=== PATIENT | female | born 1995 | race Caucasian/White ===

== ENCOUNTER 2022-03-14 09:13 | Emergency (ER) | payer MEDICAID, SELFPAY ==
[2022-03-14 09:21] VITALS: BP 126/85; PULSE 105; RESP 16; TEMP 37.2; O2SAT 99; BMI 22.6
--- NOTE | 2022-03-14 11:09 | ED.NURSE ---
[facility] right [facility]. Dr. Bonilla in room repairing wound also.
--- NOTE | 2022-03-14 11:12 | ED_ITS ---
HPI - Animal Bite General Chief Complaint: Animal Bite Stated Complaint: Dog Bite on Right Hand Time Seen by Provider: 03/14/22 10:37 History of Present Illness HPI narrative: This 27-year-old female comes in with a laceration in the palm of her right hand just between the webspace of the index and middle finger. She states that she got bit by her dog a couple days ago and sustained this injury. The dog was fighting with another dog and she attempted to break up the fight and this injury occurred. She states that she did not seek medical attention until now. She does not have any sign of infection but this laceration which is approximately 1.5 cm long was healing properly and it today she stretched her finger in such a way that the wound opened up. Her dog is fully vaccinated. Related Data Home Medications Medication Instructions Recorded Confirmed aripiprazole 20 mg tablet (Abilify) 25 mg PO DAILY 03/14/22 03/14/22 Allergies Allergy/AdvReac Type Severity Reaction Status Date / Time No Known Drug Allergies Allergy Verified 03/14/22 09:26 Review of Systems Status of ROS: Reports: 10 or more systems reviewed and unremarkable except as noted in History and below Narrative: Constitutional: No fevers, no weight gain or loss. Eyes: No discharge. No vision changes. HENT: No congestion, no sore throat, no ear pain. Cardiovascular: No chest pain, no palpitations. Respiratory: No shortness of breath, no wheezes, no cough. Gastrointestinal: No abdominal pain, no vomiting, no diarrhea. Genitourinary: No dysuria, no hematuria. Musculoskeletal: Normal range of motion. Skin: No rashes, no pruritis. Right hand injury as described above. Neurological: No dizziness, weakness, sensory change, speech change. Endo/Heme/Allergies: No bruising or bleeding. No polydipsia. Pysch: no suicidality, no anxiety, no insomnia. All other systems reviewed and are negative. Exam Narrative: Exam Narrative: Constitutional: Well-developed, well-nourished, no acute distress. HEENT: Normocephalic, atraumatic. Neck: Normal range of motion. Nontender. Supple. Heart: Intact distal pulses. Lungs: No chest discomfort. No wheezes, rhonchi, or rales. Abdomen: Nontender. Back: Normal range of motion. Extremities: Normal range of motion. 1.5 cm linear laceration in the webspace between the middle and index finger of the right hand. Skin: Intact. No rash. Warm. No erythema or pallor. Neurologic: No altered sensation. No weakness. Alert and oriented. Psychiatric: No suicidality. No anxiety or depression. No insomnia. Nursing notes and vitals signs are reviewed. Const: Vital Signs, click to edit/add: Vital Signs - 24 hr 03/14/22 09:21 Temperature 98.9 F Pulse Rate [Right Pulse Oximeter] 105 H Respiratory Rate 16 Blood Pressure [Ri ght Upper Arm] 126/85 Pulse Oximetry 99 Oxygen Delivery Me thod Room Air Course Vital Signs Vital signs: Initial Vital Signs Temperature 98.9 F 03/14/22 09:21 Temperature Source Temporal Artery Scan 03/14/22 09:21 Pulse Rate 105 H 03/14/22 09:21 Pulse Rhythm 03/14/22 09:21 Respiratory Rate 16 03/14/22 09:21 Blood Pressure 126/85 03/14/22 09:21 Blood Pressure Mean 98 03/14/22 09:21 Blood Pressure Position Sitting 03/14/22 09:21 Pulse Oximetry 99 03/14/22 09:21 Oxygen Delivery Method 03/14/22 09:21 Vital Signs Temperature 98.9 F 03/14/22 09:21 Pulse Rate 105 H 03/14/22 09:21 Respiratory Rate 16 03/14/22 09:21 Blood Pressure 126/85 03/14/22 09:21 Pulse Oximetry 99 03/14/22 09:21 Oxygen Delivery Method 03/14/22 09:21 Temperature 98.9 F 03/14/22 09:21 Pulse Rate 105 H 03/14/22 09:21 Respiratory Rate 16 03/14/22 09:21 Blood Pressure 126/85 03/14/22 09:21 Pulse Oximetry 99 03/14/22 09:21 Oxygen Delivery Method 03/14/22 09:21 MDM - Animal Bite MDM Narrative Medical decision making narrative: This patient comes in requesting repair of the wound that occurred 2 days ago. I stated that there is some increased risk for infection when repairing a wound beyond 12 hours after its occurrence. This wound was healing properly and is showing no sign of infection. I did agree to place a few sutures as this is a wound that will continue to reopen as she uses her right hand. After anesthesia with 1% lidocaine I thoroughly cleansed the wound with normal saline. Three sutures were placed in interrupted fashion using 4.0 Ethilon suture. The wound edges are nicely approximated. A Band-Aid was applied. Instructions were given regarding wound care and the need for suture removal in 7-10 days. I also describe signs and symptoms indicating need for return and re-evaluation, in particular if infection happens. Discharge Plan Discharge Clinical Impression: Dog bite Patient Disposition: Home, Self-Care Condition: Improved Additional Instructions: Keep wound clean and dry. Return to clinic or urgent care for suture removal in 7-10 days. Return to emergency department if worsening symptoms happen. Prescriptions: No Action aripiprazole [Abilify] 20 mg tablet 25 mg PO DAILY Follow Up/Referrals: Provider,Not a Local [Primary Care Provider] - Stand Alone Forms: [employer] Info Instructions
--- NOTE | 2022-03-14 11:27 | ED.NURSE ---
Given discharge instructions and verbalizes understanding of discharge instructions. No further questions asked.
== END 2022-03-14 11:29 | disposition home or self-care (01) ==
PROVIDERS: Emergency Provider Emergency Medicine Emergency Medical Services
DX: S61.411A Laceration without foreign body of right hand, initial encounter (principal); W54.0XXA Bitten by dog, initial encounter
CPT/HCPCS: 12001; 99283; 99284

== ENCOUNTER 2023-02-08 13:37 | Outpatient (CLI) | payer MEDICAID, SELFPAY | END 2023-02-08 13:38 | disposition home or self-care (01) | LOC: AMB 02-09 20:47 | PROVIDERS: Visit Provider Family Medicine | DX: S09.90XA Unspecified injury of head, initial encounter (principal); S89.91XA Unspecified injury of right lower leg, initial encounter; S89.92XA Unspecified injury of left lower leg, initial encounter; V43.62XA Car passenger injured in collision with other type car in traffic accident, initial encounter; Y92.410 Unspecified street and highway as the place of occurrence of the external cause | CPT/HCPCS: A0425; A0427 ==

== ENCOUNTER 2023-02-12 18:50 | Emergency (ER) | payer MEDICAID, SELFPAY ==
[2023-02-12 19:12] VITALS: BP 161/81; PULSE 104; RESP 18; TEMP 36.3; O2SAT 100; BMI 23.1
[2023-02-12 19:56] VITALS: BP 161/81; PULSE 104; RESP 18; TEMP 36.7; O2SAT 100
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
[2023-02-12 20:08] VITALS: BP 161/81; PULSE 104; RESP 18; TEMP 36.7
== END 2023-02-12 20:09 | disposition home or self-care (01) ==
LOC: ED 20:06
PROVIDERS: Emergency Provider Student in an Organized Health Care Education/Training Program
DX: S82.92XA Unspecified fracture of left lower leg, initial encounter for closed fracture (principal); S82.91XA Unspecified fracture of right lower leg, initial encounter for closed fracture
CPT/HCPCS: 99282; 99283

== ENCOUNTER 2023-05-04 17:15 | Emergency (ER) | payer MEDICAID, SELFPAY ==
[2023-05-04 17:17] VITALS: BP 126/87; PULSE 104; RESP 18; TEMP 36.4; O2SAT 100; BMI 21.6
--- NOTE | 2023-05-04 17:31 | US_ITS ---
Patient: ANIL MENA Facility:?[facility] Patient ID:?[id number] Site Patient ID:?[id number]. Site :?[id number] Study:?US-Extremity RT Venous-05/04/2023 6:22:21 PM Ordering Physician:Flex Final Report: INDICATION: Right ankle swelling COMPARISON: None. TECHNIQUE: Grayscale, color Doppler, and duplex Doppler of the right lower extremity deep and superficial venous systems. FINDINGS: Laterality: Right Examined veins: common femoral, femoral, deep femoral, popliteal, peroneal, posterior tibial greater saphenous The examined veins are patent with normal grayscale appearance and normal compressibility where anatomically feasible. Normal color Doppler flow. Normal venous waveforms on duplex Doppler ultrasound with normal augmentation. Specific area of concern in the right ankle shows subcutaneous edema without superficial thrombosis. IMPRESSION: Right ankle soft tissue swelling. No right lower extremity deep or superficial venous thrombus. Dictated by Cherry Magana MD @ 05/04/2023 7:27:24 PM Signed by:?Cherry Magana MD @05/04/2023 7:27:24 PM (Electronic Signature)
--- NOTE | 2023-05-04 18:18 | ED.GENADULT ---
HPI - General Adult General Chief complaint: Lower Extremity Swelling Stated complaint: R ankle injury, fell 10 ft Time Seen by Provider: 05/04/23 17:32 History of Present Illness HPI narrative: This 28-year-old female comes in with pain and redness in her right foot and extending up into the lower part of her right leg. She states that she injected methamphetamines into her foot a few days ago and now has this reaction. She states that she has been through treatment a couple times because of methamphetamine abuse and she understands that she needs help again. Related Data Home Medications Medication Instructions Recorded Confirmed aripiprazole 20 mg tablet (Abilify) 15 mg PO DAILY 03/14/22 05/04/23 lamotrigine 150 mg tablet 150 mg PO DAILY 02/12/23 05/04/23 quetiapine 100 mg tablet (Seroquel) 100 mg PO DAILY 02/12/23 05/04/23 Previous Rx's Medication Instructions Recorded oxycodone 5 mg tablet 5 mg PO Q4H PRN pain #12 tabs 02/12/23 cephalexin 500 mg capsule 500 mg PO TID 7 days #21 caps 05/04/23 Allergies Allergy/AdvReac Type Severity Reaction Status Date / Time No Known Drug Allergies Allergy Verified 05/04/23 17:22 Review of Systems Status of ROS: Reports: 10 or more systems reviewed and unremarkable except as noted in History and below Narrative: Constitutional: No fevers, no weight gain or loss. Eyes: No discharge. No vision changes. HENT: No congestion, no sore throat, no ear pain. Cardiovascular: No chest pain, no palpitations. Respiratory: No shortness of breath, no wheezes, no cough. Gastrointestinal: No abdominal pain, no vomiting, no diarrhea. Genitourinary: No dysuria, no hematuria. Musculoskeletal: Normal range of motion. Skin: No rashes, no pruritis. Erythema, warmth, and pain around the right foot and ankle region. Neurological: No dizziness, weakness, sensory change, speech change. Endo/Heme/Allergies: No bruising or bleeding. No polydipsia. Pysch: no suicidality, no anxiety, no insomnia. Methamphetamine abuse. All other systems reviewed and are negative. PFSH PFSH Social History Smoking Status: Unknown if ever smoked Second hand tobacco smoke exposure: No How often do you have a drink containing alcohol: never How often do you have six or more drinks on one occasion: Never AUDIT-C Alcohol total score: 0 Non-prescribed substance use: amphetamines/methamphetamines Exam Narrative: Exam Narrative: Constitutional: Well-developed, well-nourished, no acute distress. HEENT: Normocephalic, atraumatic. Neck: Normal range of motion. Nontender. Supple. Heart: Intact distal pulses. Lungs: No chest discomfort. No wheezes, rhonchi, or rales. Abdomen: Nontender. Back: Normal range of motion. Extremities: Normal range of motion. Erythema around the right ankle and proximal foot and extending about a quarter of the way up the right lower extremity toward the knee. Skin: Intact. No rash. Warm. No erythema or pallor. Neurologic: No altered sensation. No weakness. Alert and oriented. Psychiatric: No suicidality. No anxiety or depression. No insomnia. Nursing notes and vitals signs are reviewed. Const: Vital Signs, click to edit/add: Vital Signs - 24 hr 05/04/23 17:17 Temperature 97.6 F Pulse Rate [Pulse Oximeter] 104 H Respiratory Rate 18 Blood Pressure [Ri ght Upper Arm] 126/87 Pulse Oximetry 100 Oxygen Delivery Me thod Room Air Course Vital Signs Vital signs: Initial Vital Signs Temperature 97.6 F 05/04/23 17:17 Temperature Source Temporal Artery Scan 05/04/23 17:17 Pulse Rate 104 H 05/04/23 17:17 Respiratory Rate 18 05/04/23 17:17 Blood Pressure 126/87 05/04/23 17:17 Blood Pressure Mean 100 05/04/23 17:17 Blood Pressure Position Sitting 05/04/23 17:17 Pulse Oximetry 100 05/04/23 17:17 Oxygen Delivery Method Room Air 05/04/23 17:17 Vital Signs Temperature 97.6 F 05/04/23 17:17 Pulse Rate 104 H 05/04/23 17:17 Respiratory Rate 18 05/04/23 17:17 Blood Pressure 126/87 05/04/23 17:17 Pulse Oximetry 100 05/04/23 17:17 Oxygen Delivery Method Room Air 05/04/23 17:17 Temperature 97.6 F 05/04/23 17:17 Pulse Rate 104 H 05/04/23 17:17 Respiratory Rate 18 05/04/23 17:17 Blood Pressure 126/87 05/04/23 17:17 Pulse Oximetry 100 05/04/23 17:17 Oxygen Delivery Method Room Air 05/04/23 17:17 Medical Decision Making MDM Narrative Medical decision making narrative: This patient comes in with symptoms typical of a cellulitis in her right ankle region because of an injection that she did herself several days ago. An ultrasound is obtained and shows no evidence of thrombus or abscess. The patient did this to inject methamphetamines. She does have access to treatment resources and understands that she needs to seek this out again. The patient received a prescription for Keflex. I did describe signs and symptoms that would indicate a need for return and re-evaluation if worsening or not improving. Discharge Plan Discharge Clinical Impression: Cellulitis, Methamphetamine abuse Patient Disposition: Home, Self-Care Condition: Stable Additional Instructions: Take medication as prescribed. Follow up with MD or return if symptoms are not improving or worsening. Prescriptions: New cephalexin 500 mg capsule 500 mg PO TID 7 Days Qty: 21 0RF No Action aripiprazole [Abilify] 20 mg tablet 15 mg PO DAILY lamotrigine 150 mg tablet 150 mg PO DAILY quetiapine [Seroquel] 100 mg tablet 100 mg PO DAILY oxycodone 5 mg tablet 5 mg PO Q4H PRN (Reason: pain) Qty: 12 0RF Follow Up/Referrals: Provider,Not a Local [Referring] - Stand Alone Forms: [facility] Info Instructions
== END 2023-05-04 18:33 | disposition home or self-care (01) ==
LOC: ED 18:23
PROVIDERS: Emergency Provider Emergency Medicine Emergency Medical Services; PCP Nurse Practitioner Family
DX: L03.115 Cellulitis of right lower limb (principal); F15.10 Other stimulant abuse, uncomplicated
CPT/HCPCS: 93971; 99284

== ENCOUNTER 2024-10-20 17:13 | Emergency (ER) | payer MEDICAID, SELFPAY ==
--- OUTSIDE RECORDS SUMMARY | 2021-03-10 19:00 | XMS_ITS | Continuity of Care Document ---
Author Organization [facility] Address [address] [address] [place] [address] Phone Care Team Providers Care Board Worker Name Role Phone Marta BARRON, Caden Unavailable Unavailable Procedures Procedure Date Ugi Endo; W/endo Ultrasound Ex 22 Init Inpt Cons New/est Mod-hi 2 Advance Directives Directive Yes / No Effective Date File Name No Information Encounters Encounter Description Practice Location Reason(s) For Visit Diagnoses Date Provider Providers Copied on Encounter [facility] [place], [address] [address], [place], [place], [id number], [place] tel:[phone] [facility] No Information Marta Negrete. [address] [place] [address], [address], [id number] , [place]. tel:[phone] Referring Provider: Caden Lozano MD, [facility] [address], [address]. tel:[phone] Init Inpt Cons New/est Mod-hi [facility] [place], [address] [address], [place], [place], [id number], [place] tel:[phone] [facility] No Information Gabbie BARRON [facility]. [address] [place] [address], [facility] [address], [place], [id number] , [place]. tel:[phone] Referring Provider: Sulema Girard, [address], [place], [address]. tel:[phone] Family History Family Member Type Diagnosis Age At Onset No Information Payers Payer name Insurance type Covered libertarian ID Clive cline(s) Evelyn HAMMER CI [id number] Social History Type Description Quantity Date Captured Comments Sex Female Smoking Status No Information Chief Complaint And Reason For Visit No Information Reason For Referral Reason For Referral No Information History Of Present Illness Encounter Date Complaint History Of Prese nt Illness No Information Functional Status Date Functional Assessmen t No Information Instructions Date Instruction Additional Infor mation No Information Assessments Type Assessment Date No Information Patient Care Teams Name Effective Dates (start - stop) Status Members No Information
--- OUTSIDE RECORDS SUMMARY | 2021-03-10 19:00 | XMS_ITS | Continuity of Care Document ---
Author Organization [facility] Address [address] [address] [place] [address] Phone Care Team Providers Care Employment Case Manager Name Role Phone Marta BARRON, Caden Unavailable Unavailable Procedures Procedure Date Ugi Endo; W/endo Ultrasound Ex 22 Init Inpt Cons New/est Mod-hi 2 Advance Directives Directive Yes / No Effective Date File Name No Information Encounters Encounter Description Practice Location Reason(s) For Visit Diagnoses Date Provider Providers Copied on Encounter [facility] [place], [address] [address], [place], [place], [id number], [place] tel:[phone] [facility] No Information Marta Negrete. [address] [place] [address], [address], [id number] , [place]. tel:[phone] Referring Provider: Caden Lozano MD, [facility] [address], [address]. tel:[phone] Init Inpt Cons New/est Mod-hi [facility] [place], [address] [address], [place], [place], [id number], [place] tel:[phone] [facility] No Information Gabbie BARRON [facility]. [address] [place] [address], [facility] [address], [place], [id number] , [place]. tel:[phone] Referring Provider: Sulema Girard, [address], [place], [address]. tel:[phone] Family History Family Member Type Diagnosis Age At Onset No Information Payers Payer name Insurance type Covered democrat ID Clive cline(s) Evelyn HAMMER CI [id number] Social History Type Description Quantity Date Captured [...]
--- OUTSIDE RECORDS SUMMARY | 2024-10-20 17:15 | XMS_ITS | Clinical Summary ---
Author Organization [place] Address [facility] [place] [address] Care Team Providers Care Event Mgr Name Role Phone Sulema Luna NP Primary Care Provider [phone] Allergies No known active allergies Medications * This document contains information received from the source organization and may not represent a complete record from that organization. ARIPiprazole (ABILIFY) 5 MG tablet Take 5 mg by mouth every evening Active acetaminophen (TYLENOL) 325 MG tabletIndications: Acute cholecystitis Take 2 tablets (650 mg) by mouth every 6 hours as needed for mild pain or other (and adjunct with moderate or severe pain or per patient request) 2 Active ibuprofen (ADVIL/MOTRIN) 200 MG tabletIndications: Choledocholithiasi s Take 3 tablets (600 mg) by mouth every 6 hours as needed for moderate pain 100 tablet 2 Active oxyCODONE (ROXICODONE) 5 MG tabletIndications: Choledocholithiasi s Take 1 tablet (5 mg) by mouth every 4 hours as needed for pain 12 tablet 2 Active Active Problems Problem Noted Date Diagnosed Date Choledocholithiasis 03/10/2021 Acute cholecystitis 03/09/2021 Alcohol dependence with uncomplicated withdrawal 12/04/2018 Pyelonephritis, acute 04/30/2014 Immunizations Immunization Administration Dates Next Due TDAP Vaccine (Adacel) 07/30/2017 Social History Tobacco Use Types Packs/Day Years Used Date Smoking Tobacco: Every Day Cigarettes Smokeless Tobacco: Never Comments:3 cigarettes/day Alcohol Use Standard Drinks/Week Comments Not Currently 80 (1 standard drink = 0.6 oz pu re alcohol) quit 2 years ago 03/14/2019 Adolescent Education Answer Date Record ed Getting School Help Needed Not on file 11/22 Comments No Sex and Gender Information Value Date Recorded Sex Assigned at Not on file Legal Sex Female 3:34 AM BATCH HE[employer] T[employer]PER[employer] Gender Identity Not on file Sexual Orientation Not on file Last Filed Vital Signs Vital Sign Reading Time Taken Comments Blood Pressure 135/92 03/13/2021 4:41 PM BATCH HEAT TREAT OPERATOR Pulse 68 03/13/2021 4:41 PM BATCH HEAT TREAT OPERATOR Temperature 36.5 C (97.7 F) 03/13/2021 4:41 PM BATCH HEAT TREAT OPERATOR Respiratory Rate 16 03/13/2021 4:41 PM BATCH HEAT TREAT OPERATOR Oxygen Saturation 100% 03/13/2021 4:41 PM BATCH HEAT TREAT OPERATOR Inhaled Oxygen Concentration - - Weight 69.8 kg (153 lb 14.4 oz) 022 10:39 AM BATCH HEAT TREAT OPERATOR Height 175.3 cm (5' 9) 03/13/2021 10:3 9 AM BATCH HEAT TREAT OPERATOR Body Mass Index 22.73 03/13/2021 10:39 AM BATCH HEAT TREAT OPERATOR Plan of Treatment Not on file Insurance [facility] Advance Directives For more information, please contact: [phone] * Full Code (Latest Code Status on File) Date Activated Date Inactivated Comments 03/09/2021 10:00 PM 03/11/2021 5:18 PM All basic a nd advanced life-sustaining interventions are performed as appropriate Question Answer Comments Code status determined by: Discussion with patie nt/ legal decision maker * Full Code Date Activated Date Inactivated Comments 12/04/2018 5:01 PM 12/07/2018 3:03 PM Question Answer Comments Code status determined by: Discussion with patie nt/legal decision maker * Full Code Date Activated Date Inactivated Comments 05/02/2014 1:22 PM 08/31/2018 1:16 PM * Full Code Date Activated Date Inactivated Comments 04/30/2014 3:38 AM 05/02/2014 1:22 PM Care Teams Event Mgr Relationship Specialty [place] [id number] [place] [address] PCP - General Nurse Practitioner - Family 03/13/21
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
[2024-10-20 17:25] VITALS: BP 119/73; PULSE 94; RESP 18; TEMP 36.9; O2SAT 99; BMI 23.7
--- NOTE | 2024-10-20 17:26 | ED.GENADULT ---
HPI - General Adult General Date Seen: 10/20/24 Chief complaint: Extremity Pain/Injury, Upper Stated complaint: R arm infection Time Seen by Provider: 10/20/24 17:26 History of Present Illness HPI narrative: 29-year-old female presenting to the ER today with concern for right arm infection. She notes that she was injecting (methamphetamine, clean needle) the other day into her right dorsal forearm movement she missed the vein. Shortly after that she started developing redness and swelling. She was seen in the [facility] this morning for this redness and swelling and was prescribed Bactrim. She has not had time to go to the pharmacy yet to get her antibiotic that she had to go directly to work. While at work today she noted spreading redness, worsening swelling, firm notice of her dorsal forearm and a little bit of numbness down into her hand. She is not running a fever. Given the worsening redness she was worried and came directly here to the ER. She does not have any red streaks moving up past her elbow but does have redness that has spread a couple of cm beyond where it had been this morning. She is not feverish. She has no known history of diabetes or immunosuppression. 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 She does not share or reuse needles. She does not think she has HIV. She is willing to get an HIV test today. Per medical record she was seen here on 05/04/2023 for redness in her right foot spreading upper right leg. Per notes she had injected methamphetamine into her foot a few days prior to that presentation. Ultrasound was negative for thrombus or abscess. She was put on cephalexin 500 t.i.d. for 7 days. Related Data Home Medications ?Medication ?Instructions ?Recorded ?Confirmed aripiprazole 20 mg tablet (Abilify) 15 mg PO DAILY 03/14/22 05/04/23 lamotrigine 150 mg tablet 150 mg PO DAILY 02/12/23 05/04/23 quetiapine 100 mg tablet (Seroquel) 100 mg PO DAILY 02/12/23 05/04/23 Previous Rx's ?Medication ?Instructions ?Recorded oxycodone 5 mg tablet 5 mg PO Q4H PRN pain #12 tabs 02/12/23 cephalexin 500 mg capsule 500 mg PO TID 7 days #21 caps 05/04/23 cephalexin 500 mg capsule 500 mg PO QID 10 days #40 caps 10/20/24 Allergies Allergy/AdvReac Type Severity Reaction Status Date / Time No Known Drug Allergies Allergy Verified 05/04/23 17:22 [facility] Social History Smoking Status: Current every day smoker Second hand tobacco smoke exposure: No How often do you have a drink containing alcohol: never How often do you have six or more drinks on one occasion: Never AUDIT-C Alcohol total score: 0 Non-prescribed substance use: amphetamines/methamphetamines service: No Exam Narrative: Exam Narrative: Constitutional: Appears well-developed and well-nourished. Alert. Conversant. Non toxic. HENT: Head: Atraumatic. Nose: Nose normal. Mouth/Throat: Oral mucosa is clear and moist. no trismus. Eyes: Conjunctivae normal. EOM normal. Pupils equal, round, and reactive to light. No scleral icterus. Neck: Normal range of motion. Neck supple. No tracheal deviation present. Cardiovascular: Normal rate, regular rhythm. No gallop. No friction rub. No murmur heard. Symmetric radial artery pulses Pulmonary/Chest: Effort normal. No stridor. No respiratory distress. No wheezes. No rales. No rhonchi . No tenderness. Abdominal: Soft. Bowel sounds normal. No distension. No mass. No tenderness. No rebound. No guarding. Musculoskeletal: RUE: Normal range of motion. No deformity LUE: Normal range of motion. No tenderness. No deformity RLE: Normal range of motion. No edema. No tenderness. No deformity LLE: Normal range of motion. No edema. No tenderness. No deformity Lymph: No axillary adenopathy.. No ascending lymphangitis. Neurological: Alert and oriented to person, place, and time. Normal strength. CN II-VII intact. No sensory deficit. GCS eye subscore is 4. GCS verbal subscore is 5. GCS motor subscore is 6. Normal coordination Skin: Patient has an area of skin redness on the dorsal radial aspect of her right forearm it extends from roughly the wrist about [address] toward her elbow. And essentially or the redness there are 2 areas of recent drug injection. One of them is less than 1 cm, triangular shaped and scab. The other 1 is less than 1 cm and is not scabbed. Patient says there has been some purulent drainage from the 2nd wound but there is no active drainage. The tissue of the dorsal forearm is indurated and firm but there is no palpable fluctuance. No crepitus or gas in the soft tissue. Normal range of motion in her elbow and wrist. No signs of septic arthritis. No ascending lymphangitis. Skin is warm and dry. No rash noted. No pallor. Normal capillary refill. Psychiatric: Normal mood. Normal affect. Const: Vital Signs, click to edit/add: Vital Signs - 24 hr 10/20/24 17:25 10/20/24 19:44 10/20/24 19:45 Temperature 98.5 F 98.5 F 98.5 F Pulse Rate [Pulse Oximeter] 94 89 89 Respiratory Rate 18 18 18 Blood Pressure [Ri t Upper Arm] 119/73 121/70 121/70 Pulse Oximetry 99 99 Oxygen Delivery Me thod Room Air Course Vital Signs Vital signs: Initial Vital Signs Temperature 98.5 F 10/20/24 17:25 Temperature Source Temporal Artery Scan 10/20/24 17:25 Pulse Rate 94 10/20/24 17:25 Pulse Rhythm Regular 10/20/24 17:25 Respiratory Rate 18 10/20/24 17:25 Blood Pressure 119/73 10/20/24 17:25 Blood Pressure Mean 88 10/20/24 17:25 Blood Pressure Position Sitting 10/20/24 17:25 Pulse Oximetry 99 10/20/24 17:25 Vital Signs Temperature 98.5 F 10/20/24 17:25 Pulse Rate 94 10/20/24 17:25 Respiratory Rate 18 10/20/24 17:25 Blood Pressure 119/73 10/20/24 17:25 Pulse Oximetry 99 10/20/24 17:25 Temperature 98.5 F 10/20/24 19:45 Pulse Rate 89 10/20/24 19:45 Respiratory Rate 18 10/20/24 19:45 Blood Pressure 121/70 10/20/24 19:45 Pulse Oximetry 99 10/20/24 19:44 Oxygen Delivery Method Room Air 10/20/24 19:44 Medications Administered Medications: Discontinued Medications Generic Name Dose Route Start Last Admin Trade Name Freq PRN Reason Stop Dose Admin Cephalexin HCl 500 mg 10/20/24 17:47 10/20/24 17:55 Cephalexin 500 Mg Capsule PO 10/20/24 17:48 500 mg ONCE ONE Administration Trimethoprim/Sulfamethoxazole 1 tab 10/20/24 17:47 10/20/24 17:55 Sulfa/Trimethoprim 800/160 1 Tab PO 10/20/24 17:48 1 tab ONCE ONE Administration Medical Decision Making MDM Narrative Medical decision making narrative: This patient presents for evaluation of skin redness on the dorsum of her right forearm. The history, physical exam is consistent with cellulitis. There do not appear at this time to be any complication of cellulitis including abscess, necrotizing fascitis, lymphangitis, lymphadenitis, osteomyelitis, sepsis, or shock. Bedside ultrasound is negative for any discrete fluid collection but does show cobblestoning in the subcutaneous tissue consistent with cellulitis. The patient is not immunosuppressed or diabetic. Supportive outpatient management is indicated with antibiotics. The patient is instructed to follow-up with primary care physician to ensure no progression and rapid resolution and given precautions to return if high fever, spread greater than 2cm outside of the marked area, worsening pain, vomiting or any other worsening. Questions answered and return precautions reviewed. 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 We did give her 1st dose of Bactrim and her 1st dose of the cephalexin here in the ER today. Laboratory workup is reassuring with normal white count and blood sugar. Patient has low suspicion for HIV positivity, but since she is an IV drug user we did check HIV. Fortunately, HIV 1 and 2 and HIV P 24 antigen are negative. Will have the patient continue her Bactrim and also add a prescription for cephalexin. Precautions for return to the ER reviewed. Lab Data Labs: Lab Results 10/20/24 Range/Units 18:30 WBC 8.41 (4.50-11.00) K/uL RBC 3.84 L (4.00-5.20) m/uL Hgb 10.9 L (12.0-16.0) gm/dL Hct 34.4 (33.0-51.0) % MCV 90 (80-100) fL MCH 28 (26-34) pg MCHC 32 (32-36) gm/dL RDW Coeff of Cyndie 14.2 (11.5-15.5) % Plt Count 202 (140-440) K/uL Neut % (Auto) 75.4 H (42.0-72.0) % Lymph % (Auto) 16.2 L (20-44) % Sol[place] % (Auto) 6.7 (0.0-11.0) % Eos % (Auto) 1.1 (0.0-7.0) % Baso % (Auto) 0.5 (0.0-3.0) % Neut # (Auto) 6.30 (1.7-7.0) K/uL Lymph # (Auto) 1.40 (0.90-2.90) K/uL Sol[place] # (Auto) 0.60 (0.00-0.90) K/UL Eos # (Auto) 0.09 (0.00-0.50) K/uL Baso # (Auto) 0.04 (0.00-0.30) K/uL Abs Immat Gran (auto) 0.01 (0.00-0.30) K/uL Imm/Tot Granulo (auto) 0.1 % Sodium 138 (135-149) mmol/L Potassium 4.0 (3.6-5.1) mmol/L Chloride 105 (96-114) mmol/L Carbon Dioxide 26 (20-32) mmol/L Anion Gap 7 (7-15) mEq/L BUN 16 (5-24) mg/dL Creatinine 1.1 (0.5-1.5) mg/dL Estimated Creat Clear 82.82 Estimated GFR 69 ml/min Glucose 106 (60-115) mg/dL Calcium 9.1 (8.4-10.6) mg/dL HIV 1&2 Ab/P24 Ag 4thGn Negative (Negative) Discharge Plan Discharge Clinical Impression: Cellulitis of forearm, right Patient Disposition: Home, Self-Care Condition: Stable Instructions: Cellulitis (ED) Additional Instructions: As we discussed, please return to the ER right away if you have any concerns especially high fever, worsening pain, swelling, or redness, red streaks spreading up your arm, or if you have any other problems. It typically will take about 48 hours of being on antibiotics for the redness will start to look better. It may take several days for the redness to completely resolve. Please follow-up with your regular doctor for a recheck with in seven days. Prescriptions: New cephalexin 500 mg capsule 500 mg PO QID 10 Days Qty: 40 0RF No Action cephalexin 500 mg capsule 500 mg PO TID 7 Days Qty: 21 0RF aripiprazole [Abilify] 20 mg tablet 15 mg PO DAILY lamotrigine 150 mg tablet 150 mg PO DAILY quetiapine [Seroquel] 100 mg tablet 100 mg PO DAILY oxycodone 5 mg tablet 5 mg PO Q4H PRN (Reason: pain) Qty: 12 0RF Follow Up/Referrals: Sulema Luna, DAVID, MEDIA PRODUCER [Primary Care Provider, Family Practice] Stand Alone Forms: [facility] Instructions Procedures POC Ultrasound Skin/Soft Tissue Anatomical areas examined: Right arm Indications: soft tissue pain, soft tissue swelling and soft tissue redness Exam type: limited soft tissue ultrasound Findings: generalized edema/cobble stoning Impression: cellulitis
[2024-10-20] MEDS: SULFA/TRIMETHOPRIM 800/160 1 TAB PO (17:55)
[2024-10-20 18:47] LABS: Hematocrit 34.4 % (33.0-51.0); Hemoglobin* 10.9 gm/dL (12.0-16.0); Immature Granulocytes Abs Auto 0.01 K/uL (0.00-0.30); Immature Granulocytes Pct Auto 0.1 %; Mean Corpuscular HGB Conc 32 gm/dL (32-36); Mean Corpuscular Hemoglobin 28 pg (26-34); Mean Corpuscular Volume 90 fL (80-100); RDW Coefficient of Variation % 14.2 % (11.5-15.5); Red Blood Count 3.84 m/uL (4.00-5.20); White Blood Count* 8.41 K/uL (4.50-11.00)
[2024-10-20 18:51] LABS: Lymphocytes Absolute Auto 1.40 K/uL (0.90-2.90)
[2024-10-20 19:04] LABS: Chloride* 105 mmol/L (96-114); Potassium* 4.0 mmol/L (3.6-5.1); Sodium* 138 mmol/L (135-149)
[2024-10-20 19:06] LABS: Slide Review Reflex No
[2024-10-20 19:07] LABS: Anion Gap 7 mEq/L (7-15); Blood Urea Nitrogen* 16 mg/dL (5-24); Calcium* 9.1 mg/dL (8.4-10.6); Carbon Dioxide* 26 mmol/L (20-32); Creatinine* 1.1 mg/dL (0.5-1.5); Est. Creatinine Clearance* 82.82; Estimated Glomerular Filt Rate 69 ml/min; Glucose* 106 mg/dL (60-115)
[2024-10-20 19:44] VITALS: BP 121/70; PULSE 89; RESP 18; TEMP 36.9; O2SAT 99
[2024-10-20 19:45] VITALS: BP 121/70; PULSE 89; RESP 18; TEMP 36.9
[2024-10-20 20:37] LABS: HIV 1/2/P24 Combo Screen* Negative (Negative)
== END 2024-10-20 19:52 | disposition home or self-care (01) ==
PROVIDERS: Emergency Provider Emergency Medicine; PCP Nurse Practitioner Family
DX: L03.113 Cellulitis of right upper limb (principal)
CPT/HCPCS: 36415; 80048; 85025; 86703; 99283; A9270